=== PATIENT | female | born 1995 | race Caucasian/White ===

== ENCOUNTER 2021-04-28 19:05 | Emergency (ER) | payer OTHER ==
[~2021-04-28 19:05] MED LIST: CALCIUM CHLORIDE 1 GM/10 ML VIAL ONE; DEXTROSE 50% SYRINGE 50 ML IVP ONE; EPINEPHrine 10 ML SYRINGE (0.1 MG/ML) ONE; SODIUM BICARB 8.4% 50 ML SYR (1 MEQ/ML) ONE
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
== END 2021-04-28 21:39 | disposition expired ==
LOC: EDBD → EC 19:05
DX: I46.9 Cardiac arrest, cause unspecified (principal); S61.412A Laceration without foreign body of left hand, initial encounter; S61.411A Laceration without foreign body of right hand, initial encounter; S00.531A Contusion of lip, initial encounter; V89.2XXA Person injured in unspecified motor-vehicle accident, traffic, initial encounter; Y92.410 Unspecified street and highway as the place of occurrence of the external cause
CPT/HCPCS: 99285; 32551; J0171